=== PATIENT | female | born 1990 | race Caucasian/White ===

== ENCOUNTER 2018-08-09 10:54 | Inpatient (IN) | payer MEDICAID ==
[2018-08-09] MEDS ORDERED: LACTATED RINGER'S 1,000 ML IV (11:34)
[2018-08-09] MEDS ORDERED: METHYLERGONOVINE 0.2 MG INJ IM ×2 (12:00→22:30)
[2018-08-09] MEDS ORDERED: OXYTOCIN 30 UNITS/LR 500 ML IV ×3 (12:00→22:30)
[2018-08-09] MEDS ORDERED: MISOPROSTOL 200 MCG TAB PR ×2 (12:00→22:30)
[2018-08-09] MEDS ORDERED: CARBOPROST 250 MCG INJ IM ×2 (12:00→22:30)
[2018-08-09 12:04] LABS: ADD MAN DIFF? NO
[2018-08-09 12:09] LABS: BASOPHILS % 0.3 % (0.0-2.0); EOSINOPHILS # 0.1 10^3/ul (0.0-0.5); HEMATOCRIT 40.2 % (37.0-47.0); HEMOGLOBIN 13.7 g/dl (12.0-16.0); LYMPHOCYTES # 2.5 10^3/ul (0.8-2.9); LYMPHOCYTES % 23.9 % (15.0-51.0); MEAN CORPUSCULAR HGB CONC 34.1 g/dl (32.0-37.0); MEAN PLATELET VOLUME 12.2 fl (7.4-10.4); MONOCYTE # 0.6 10^3/ul (0.3-0.9); MONOCYTES % 5.6 % (0.0-11.0); NEUTROPHIL # 7.2 10^3/ul (1.6-7.5); NEUTROPHILS % 68.6 % (39.0-77.0); PLATELET COUNT 196 10^3/UL (140-415); RED BLOOD COUNT 4.42 10^6/ul (4.20-5.40); RED CELL DISTRIBUTION WIDTH 13.6 % (11.5-14.5)
[2018-08-09 12:09] LABS: WHITE BLOOD COUNT 10.5 10^3/ul (4.8-10.8)
[2018-08-09 12:26] LABS: ALANINE AMINOTRANSFERASE 12 IU/L (13-69); ALBUMIN 3.7 g/dl (3.3-4.9); ALBUMIN/GLOBULIN RATIO 1.08; ALKALINE PHOSPHATASE 177 IU/L (42-121); ANION GAP 12 (5-13); ASPARTATE AMINO TRANSFERASE 30 IU/L (15-46); BILIRUBIN,INDIRECT 0.4 mg/dl (0-1.1); BILIRUBIN,TOTAL 0.4 mg/dl (0.2-1.3); BLOOD UREA NITROGEN 7 mg/dl (7-20); CALCIUM 9.5 mg/dl (8.4-10.2); CARBON DIOXIDE 18 mmol/L (21-31); CHLORIDE 109 mmol/L (97-110); CREATININE 0.59 mg/dl (0.44-1.00); Estimated GFR > 60 mL/min (>60); GLUCOSE 87 mg/dl (70-220); POTASSIUM 4.1 mmol/L (3.5-5.1); SODIUM 139 mmol/L (135-144); TOTAL PROTEIN 7.1 g/dl (6.1-8.1)
[2018-08-09 12:38] LABS: INR 0.82; PROTIME 11.4 Sec (11.9-14.9); PT RATIO 0.9
[2018-08-09 12:39] LABS: PARTIAL THROMBOPLASTIN TIME 26.8 Sec (23.0-35.0)
[2018-08-09] MEDS: LACTATED RINGER'S 1,000 ML IV ×2 (12:46→18:54)
[2018-08-09] MEDS: AMPICILLIN 2 GM/NS (PMX) 100 ML IV (12:53)
[2018-08-09] MEDS: OXYTOCIN 30 UNITS/LR 500 ML IV ×2 (14:16→19:47)
[2018-08-09 16:11] LABS: ADD UMIC NO; UR ASCORBIC ACID NEGATIVE (NEGATIVE); UR BILIRUBIN (Dip) NEGATIVE (NEGATIVE); UR BLOOD (Dip) NEGATIVE (NEGATIVE); UR CLARITY CLEAR (CLEAR); UR COLOR COLORLESS (YELLOW); UR GLUCOSE (Dip) NEGATIVE (NEGATIVE); UR KETONES (Dip) NEGATIVE (NEGATIVE); UR LEUKOCYTE ESTERASE (Dip) NEGATIVE Leu/ul (NEGATIVE); UR NITRITE (Dip) NEGATIVE (NEGATIVE); UR SPECIFIC GRAVITY (Dip) 1.002 (1.003-1.030); UR TOTAL PROTEIN (Dip) NEGATIVE (NEGATIVE); UR UROBILINOGEN (Dip) NEGATIVE (NEGATIVE)
[2018-08-09 16:44] LABS: RAPID PLASMA REAGIN NONREACTIVE (NR)
[2018-08-09] MEDS: AMPICILLIN 1 GM/NS (PMX) 50 ML IV (16:53)
[2018-08-09 19:32] LABS: URIC ACID 6.9 mg/dl (3.1-7.9)
[2018-08-09] MEDS: MINERAL OIL LIGHT 10 ML VIAL TOP (19:48)
[2018-08-09] MEDS: LIDOCAINE 1% (MPF) 30 ML INJ INJ (19:48)
[2018-08-09] MEDS: BUTORPHANOL 2 MG INJ IV (19:48)
[2018-08-09] MEDS: KETOROLAC 30 MG INJ IV (20:17)
[2018-08-09] MEDS ORDERED: ACETAMINOPHEN 325 MG TAB PO (22:30)
[2018-08-09] MEDS ORDERED: DIBUCAINE 1% 30 GM OINT TOP (22:30)
[2018-08-10] MEDS: LACTATED RINGER'S 1,000 ML IV* ×2 (00:55→07:00)
[2018-08-10] MEDS: IBUPROFEN 600 MG TAB PO ×4 (00:56→18:00)
[2018-08-10] MEDS: BENZOCAINE 20% 56 ML SPRAY TOP (00:57)
[2018-08-10] MEDS: WITCH HAZEL/GLYCERIN PAD PR (00:57)
[2018-08-10 08:35] LABS: ADD MAN DIFF? NO
[2018-08-10 08:43] LABS: BASOPHILS % 0.3 % (0.0-2.0); EOSINOPHILS % 0.2 % (0.0-7.0); HEMATOCRIT 33.5 % (37.0-47.0); HEMOGLOBIN 11.3 g/dl (12.0-16.0); LYMPHOCYTES # 2.3 10^3/ul (0.8-2.9); LYMPHOCYTES % 18.5 % (15.0-51.0); MEAN CORPUSCULAR HEMOGLOBIN 31.3 pg (29.0-33.0); MEAN CORPUSCULAR HGB CONC 33.7 g/dl (32.0-37.0); MEAN CORPUSCULAR VOLUME 92.8 fl (82.0-101.0); MEAN PLATELET VOLUME 12.7 fl (7.4-10.4); MONOCYTE # 0.7 10^3/ul (0.3-0.9); MONOCYTES % 5.8 % (0.0-11.0); NEUTROPHIL # 9.4 10^3/ul (1.6-7.5); NEUTROPHILS % 74.7 % (39.0-77.0); PLATELET COUNT 166 10^3/UL (140-415); RED BLOOD COUNT 3.61 10^6/ul (4.20-5.40); RED CELL DISTRIBUTION WIDTH 13.5 % (11.5-14.5)
[2018-08-10 08:43] LABS: WHITE BLOOD COUNT 12.5 10^3/ul (4.8-10.8)
[2018-08-10] MEDS: SENNA/DOCUSATE NA (8.6MG/50MG) TAB PO ×2 (09:21→21:00)
[2018-08-11] MEDS: HYDROCODONE/APAP (5/325) TAB PO (01:21)
[2018-08-11] MEDS: IBUPROFEN 600 MG TAB PO ×3 (05:39→13:10)
[2018-08-11] MEDS: DIPHTH/TET/ACEL PERTUSS (ADULT) 0.5 ML VIAL IM* (09:00)
[2018-08-11] MEDS: SENNA/DOCUSATE NA (8.6MG/50MG) TAB PO (09:29)
== END 2018-08-11 15:30 | disposition home or self-care (01) | DRG 807 ==
LOC: L-D 10:54 → PP1 21:50
PROC: 10E0XZZ Delivery of Products of Conception, External Approach (ICD-10-PCS; principal; 2018-08-09)
PROC: 0KQM0ZZ Repair Perineum Muscle, Open Approach (ICD-10-PCS; 2018-08-09)
DX: O69.81X0 Labor and delivery complicated by cord around neck, without compression, not applicable or unspecified (principal); Z37.0 Single live birth; O70.1 Second degree perineal laceration during delivery; Z3A.39 39 weeks gestation of pregnancy
CPT/HCPCS: 76816; 80053; 81003; 84560; 85025; 85610; 85730; 86592; 86850; 86900; 86901